=== PATIENT | female | born 1985 | race Caucasian/White ===

== ENCOUNTER 2016-09-21 15:19 | Emergency (ER) | payer OTHER ==
[~2016-09-21] VITALS: Ht 160 cm; Wt 59.1 kg
[2016-09-21 15:23] VITALS: BP 104/75; TEMP 100.4
[2016-09-21] MEDS ORDERED: CYMBALTA 60MG60 MG PO (15:26)
[2016-09-21] MEDS ORDERED: DICLOXACILLIN500 MG PO (15:55)
[2016-09-21] MEDS ORDERED: IBU800 M1 PO (15:55)
[2016-09-21 16:13] VITALS: PULSE 107
== END 2016-09-21 16:17 | disposition home or self-care (01) ==
LOC: COL.ER 15:19
DX: N61.0 Mastitis without abscess (principal)